=== PATIENT | male | born 1990 | race American Indian/Alaskan Native ===

== ENCOUNTER 2017-06-16 00:42 | Emergency (ER) | payer SELFPAY ==
--- NOTE | 2017-06-16 02:21 | XRay Report ---
FINAL REPORT EXAM: XR KNEE BILAT 1-2V HISTORY: fall thru stairs with pain COMPARISON: None available. FINDINGS: Two views of each knee obtained. Bony structures are intact. Joint spaces are preserved. No acute fracture dislocation. IMPRESSION: No acute bony abnormality.
[2017-06-16 04:17] VITALS: BP 138/89
[2017-06-16] MEDS ORDERED: NORCO 5/325 PO ONE (06:29)
[2017-06-16] MEDS ORDERED: MOTRIN PO ONE (06:29)
--- NOTE | 2017-06-16 06:29 | Emergency Department Report ---
ED Lower Extremity HPI - General Chief Complaint: Fall Stated Complaint: RT KNEE PAIN Time Seen by Provider: 06/16/17 06:20 Source: patient, EMS Mode of arrival: Ambulatory Limitations: No Limitations - History of Present Illness Initial Comments: 26-year-old male no significant past medical history presents with complaint of abrasions to both legs near knees and right knee pain status post mechanical fall. Patient states she was walking down stairs in his apartment building and as he placed a foot on a step stair gave way and both of his legs went through the step. Patient states the step may have been the lab dated. Both of his lower legs 1 through he was raised and skin superficially along both knees. Patient was able to immediately pull himself out of the damaged staircase that. Was witnessed by his girlfriend. Denies any loss of consciousness denies any other injuries patient is ambulatory but states that he is having pain near his right knee. Denies chest pain abdominal pain shortness of breath. Unaware of tetanus vaccine status. MD Complaint: knee injury (bilateral knee abrasions) -: Sudden, This evening Injury: Knee: Right, Left Type of Injury: other (fell through the lap and dated staircase) Place: home Severity: moderate Severity scale (0 -10): 6 Improves With: nothing Worsens With: nothing Other Symptoms: loss of consciousness Associated Symptoms: able to partially bear weight - Related Data Previous Rx's Medication Instructions Recorded Last Taken Type Naproxen [Naprosyn TAB] 500 mg PO BID PRN #25 tablet 06/16/17 Unknown Rx Neomycn/Baci Zn/Pmyx Bs/Pramox 1 applicatio TP BID #1 oint...g. 06/16/17 Unknown Rx [Triple Antibioti-Pain Rlf Oint] Allergies Allergy/AdvReac Type Severity Reaction Status Date / Time No Known Allergies Allergy Verified 06/16/17 00:53 ED Review of Systems ROS: Stated complaint: RT KNEE PAIN Other details as noted in HPI Constitutional: denies: chills, fever Eyes: denies: eye pain, eye discharge, vision change ENT: denies: ear pain, throat pain Respiratory: denies: cough, shortness of breath, wheezing Cardiovascular: denies: chest pain, palpitations Endocrine: no symptoms reported Gastrointestinal: denies: abdominal pain, nausea, diarrhea Genitourinary: denies: urgency, dysuria Musculoskeletal: denies: back pain, joint swelling, arthralgia Skin: denies: rash, lesions Neurological: denies: headache, weakness, paresthesias Psychiatric: denies: anxiety, depression Hematological/Lymphatic: denies: easy bleeding, easy bruising ED Past Medical Hx - Past Medical History Previous Medical History?: No - Surgical History Past Surgical History?: Yes Additional Surgical History: cyst removed from left wrist - Social History Smoking Status: Current Every Day Smoker Substance Use Type: None - Medications Home Medications: Home Medications Medication Instructions Recorded Confirmed Last Taken Type Naproxen [Naprosyn TAB] 500 mg PO BID PRN #25 tablet 06/16/17 Unknown Rx Neomycn/Baci Zn/Pmyx Bs/Pramox 1 applicatio TP BID #1 oint...g. 06/16/17 Unknown Rx [Triple Antibioti-Pain Rlf Oint] ED Physical Exam - General Limitations: No Limitations General appearance: alert, in no apparent distress - Head Head exam: Present: atraumatic, normocephalic - Eye Eye exam: Present: normal appearance, PERRL, EOMI - ENT ENT exam: Present: mucous membranes moist - Neck Neck exam: Present: normal inspection, full ROM - Respiratory Respiratory exam: Present: normal lung sounds bilaterally. Absent: respiratory distress - Cardiovascular Cardiovascular Exam: Present: regular rate, normal rhythm. Absent: systolic murmur, diastolic murmur, rubs, gallop - GI/Abdominal GI/Abdominal exam: Present: soft, normal bowel sounds - Rectal Rectal exam: Present: deferred - Extremities Exam Extremities exam: Present: normal inspection - Expanded Lower Extremity Exam Right Hip exam: Present: normal inspection, full ROM Upper Leg exam: Present: normal inspection, full ROM Knee exam: Present: full ROM (knee flexion and extension intact on exam), abrasion (area of abrasions to the right inner medial knee area), full knee extension (knee flexion and extension intact) Lower Leg exam: Present: full ROM Ankle exam: Present: normal inspection, full ROM Foot/Toe exam: Present: normal inspection, full ROM Neuro vascular tendon exam: Present: no vascular compromise (distal dorsalis pedis and posterior tibial pulses intact) Gait: Positive: antalgic (antalgic gait secondary to right knee pain) 1 - Abrasions here - Back Exam Back exam: Present: normal inspection - Neurological Exam Neurological exam: Present: alert, oriented X3, CN II-XII intact, abnormal gait (antalgic gait) - Psychiatric Psychiatric exam: Present: normal affect, normal mood - Skin Skin exam: Present: warm, dry, intact, normal color. Absent: rash ED Course Vital Signs 06/16/17 06/16/17 00:48 04:16 Temperature 98.5 F 97.8 F Pulse Rate 86 77 Respiratory 18 18 Rate Blood Pressure 146/73 138/89 O2 Sat by Pulse 98 98 Oximetry ED Lower Extremity MDM - Medical Decision Making A/P: Abrasions on skin, mechanical fall through staircase, right knee sprain 1-patient ambulatory no neurovascular deficits x-rays unremarkable of bilateral knees. noegative NEXUS and new [place] head CT criteria, pt fully ludic , cn 1- 12 intact, ambulatory 2-tetanus updated today 3-triple antibiotic ointment to superficial abrasions 4- patient provided with crutches to assist with ambulation, Andre wrap right knee , patient can begin to bear weight little by little over the next few days. RICE therapy Critical care attestation.: If time is entered above; I have spent that time in minutes in the direct care of this critically ill patient, excluding procedure time. ED Disposition Clinical Impression: Abrasion Knee sprain Qualifiers: Encounter type: initial encounter Involved ligament of knee: unspecified ligament Laterality: right Qualified Code(s): S83.91XA - Sprain of unspecified site of right knee, initial encounter Disposition: TO HOME OR SELFCARE Is pt being admited?: No Does the pt Need Aspirin: No Condition: Stable Instructions: Knee Sprain (ED), Abrasion (ED), RICE Therapy (ED) Prescriptions: Naproxen [Naprosyn TAB] 500 mg PO BID PRN #25 tablet PRN Reason: Pain Neomycn/Baci Zn/Pmyx Bs/Pramox [Triple Antibioti-Pain Rlf Oint] 1 applicatio TP BID #1 oint...g. Referrals: [facility] [Provider Group] - 3-5 Days Forms: Accompanied Note, Work/School Release Form(ED) Time of Disposition: 06:44
[2017-06-16] MEDS ORDERED: TRIPLE ANTIBIOTIC TP ONE (06:30)
[2017-06-16] MEDS ORDERED: BOOSTRIX IM ONE (06:30)
[2017-06-16] MEDS ORDERED: ZOFRAN ODT PO ONE (06:30)
== END 2017-06-16 06:55 | disposition home or self-care (01) ==
LOC: ED 00:42
DX: S83.91XA Sprain of unspecified site of right knee, initial encounter (principal); S80.812A Abrasion, left lower leg, initial encounter; S80.811A Abrasion, right lower leg, initial encounter; F17.200 Nicotine dependence, unspecified, uncomplicated; W18.30XA Fall on same level, unspecified, initial encounter; Y93.9 Activity, unspecified; Y92.9 Unspecified place or not applicable; Y99.9 Unspecified external cause status
CPT/HCPCS: 90471; 90715; A6250; Q0162

== ENCOUNTER 2018-07-25 08:20 | Emergency (ER) | payer SELFPAY ==
--- NOTE | 2018-07-25 09:01 | XRay Report ---
ROUTINE CHEST, TWO VIEWS: HISTORY: chest pain. The trachea, heart, mediastinal contour, lung miranda and bony thorax are unremarkable. IMPRESSION: Unremarkable chest x-ray.
[2018-07-25 09:28] LABS: Basophils # (Auto) 0.1 K/mm3 (0.0-0.1); Basophils % (Auto) 0.9 % (0.0-1.8); Eosinophils # (Auto) 0.2 K/mm3 (0.0-0.4); Eosinophils % (Auto) 2.7 % (0.0-4.3); Hematocrit 42.2 % (35.5-45.6); Lymphocytes # (Auto) 2.4 K/mm3 (1.2-5.4); Lymphocytes % (Auto) 31.7 % (13.4-35.0); Mean Corpuscular HGB Conc 33 % (32-34); Mean Corpuscular Hemoglobin 30 pg (28-32); Mean Corpuscular Volume 90 fl (84-94); Monocytes # (Auto) 0.5 K/mm3 (0.0-0.8); Monocytes % (Auto) 6.7 % (0.0-7.3); Platelet Count 209 K/mm3 (140-440); Red Cell Distribution Width 14.5 % (13.2-15.2)
[2018-07-25 09:49] LABS: BUN/Creatinine Ratio 15; Blood Urea Nitrogen 12 mg/dL (9-20); Calcium 9.2 mg/dL (8.4-10.2); Hemolysis Index 30
[2018-07-25] MEDS ORDERED: CATAPRES PO ONE (12:31)
--- NOTE | 2018-07-25 12:33 | Emergency Department Report ---
Blank Doc - Documentation Documentation: Patient is a 27-year-old -[place] male no no past medical history who is complaining of some chest discomfort. States is a pressure sensation in the middle of the chest but also hurts when he takes a deep breath he feels a sharp pain. Patient denies any leg swelling recent travel. Patient denies any cough cold congestion fevers chills nausea vomiting. Patient states this is been present since he woke up this morning about 7:30. A focused physical exam heart tones are within normal limits his lungs are clear to auscultation. There is no unilateral leg swelling. Patient has laboratory studies reviewed by me and show no acute abdomen now. Patient has a negative troponin. EKG shows a normal sinus rhythm with normal rate no axis deviation no ST segment elevation or depression. Because of the pleuritic component of the chest patient's pain and I will be ordered. Patient also has elevated blood pressure approximately 180 systolic and patient was given Catapres will be reassessed.
[2018-07-25 12:37] VITALS: BP 141/66
--- NOTE | 2018-07-25 12:47 | Emergency Department Report ---
ED Chest Pain HPI - General Chief Complaint: Chest Pain Stated Complaint: CHEST PAIN Time Seen by Provider: 07/25/18 12:19 Source: patient Mode of arrival: Ambulatory Limitations: No Limitations - History of Present Illness Initial Comments: Patient is a 27-year-old -[place] male no past medical history who is complaining of some chest discomfort. States is a pressure sensation in the middle of the chest but also hurts when he takes a deep breath he feels a sharp pain. Patient denies any leg swelling recent travel. Patient denies any cough cold congestion fevers chills nausea vomiting. Patient states this is been present since he woke up this morning about 7:30. Pain 6/10. Exacerbated by taking a deep breath and no alleviating factors. No medication taken prior to coming to the emergency room MD Complaint: chest pain -: This morning Onset: during rest Pain Location: substernal Pain Radiation: none Severity: severe Severity scale (0 -10): 6 Quality: sharp, pressure Consistency: constant Improves With: nothing Worsens With: inspiration Context: other (unknown) re: denies: nausea, vomting, diaphoresis, dyspnea, sense of impending doom Other Symptoms: denies: cough, fever, syncope, rash, acid taste in mouth, leg swelling, palpitations, burping Treatments Prior to Arrival: none Aspirin use within the Past 7 Days: (0) No - Related Data On Oral Contraceptives: No Previous Rx's Medication Instructions Recorded Last Taken Type Neomycn/Bacitrc/Polymyx/Pramox 1 applicatio TP BID #1 oint...g. 06/16/17 Unknown Rx [Triple Antibioti-Pain Rlf Oint] Famotidine [Pepcid] 20 mg PO BID 30 Days #30 tablet 07/25/18 Unknown Rx Naproxen [Naprosyn TAB] 500 mg PO BID PRN #14 tablet 07/25/18 Unknown Rx Allergies Allergy/AdvReac Type Severity Reaction Status Date / Time No Known Allergies Allergy Verified 06/16/17 00:53 Heart Score - HEART Score History: Slightly suspicious EKG: Normal Age: < 45 Risk factors: No known risk factors Troponin: < normal limit HEART Score: 0 ED Review of Systems ROS: Stated complaint: CHEST PAIN Other details as noted in HPI Constitutional: denies: chills, fever Eyes: denies: vision change ENT: denies: congestion Respiratory: denies: cough, shortness of breath, SOB with exertion, SOB at rest , wheezing Cardiovascular: chest pain. denies: palpitations, dyspnea on exertion, edema, syncope, paroxysmal nocturnal dyspnea Gastrointestinal: denies: abdominal pain, nausea, vomiting, diarrhea Musculoskeletal: denies: back pain, joint swelling, arthralgia Skin: denies: rash, lesions Neurological: denies: headache, weakness ED Past Medical Hx - Past Medical History Previous Medical History?: No Hx Seizures: No - Surgical History Past Surgical History?: Yes Additional Surgical History: cyst removed from left wrist - Family History Family history: hypertension - Social History Smoking Status: Current Every Day Smoker Substance Use Type: None - Medications Home Medications: Home Medications Medication Instructions Recorded Confirmed Last Taken Type Neomycn/Bacitrc/Polymyx/Pramox 1 applicatio TP BID #1 oint...g. 06/16/17 Unknown Rx [Triple Antibioti-Pain Rlf Oint] Famotidine [Pepcid] 20 mg PO BID 30 Days #30 tablet 07/25/18 Unknown Rx Naproxen [Naprosyn TAB] 500 mg PO BID PRN #14 tablet 07/25/18 Unknown Rx ED Physical Exam - General Limitations: No Limitations General appearance: alert, in no apparent distress - Head Head exam: Present: atraumatic, normocephalic, normal inspection - Eye Eye exam: Present: normal appearance, PERRL, EOMI Pupils: Present: normal accommodation - ENT ENT exam: Present: normal exam, normal orophraynx, mucous membranes moist - Neck Neck exam: Present: normal inspection, full ROM. Absent: tenderness, lymphadenopathy - Respiratory Respiratory exam: Present: normal lung sounds bilaterally. Absent: respiratory distress, chest wall tenderness - Cardiovascular Cardiovascular Exam: Present: regular rate, normal rhythm, normal heart sounds. Absent: systolic murmur, diastolic murmur - GI/Abdominal GI/Abdominal exam: Present: soft, normal bowel sounds. Absent: distended, tenderness, rigid, organomegaly, mass - Extremities Exam Extremities exam: Present: normal inspection, full ROM, normal capillary refill , other. Absent: tenderness, pedal edema, joint swelling, calf tenderness - Back Exam Back exam: Present: normal inspection, full ROM, other (Ambulates without difficulties). Absent: tenderness, CVA tenderness (R), CVA tenderness (L), muscle spasm, paraspinal tenderness, vertebral tenderness, rash noted - Neurological Exam Neurological exam: Present: alert, oriented X3, normal gait - Psychiatric Psychiatric exam: Present: normal affect, normal mood - Skin Skin exam: Present: warm, dry, intact, normal color. Absent: rash ED Course Vital Signs 07/25/18 07/25/18 07/25/18 08:43 12:37 12:48 Temperature 98.8 F Pulse Rate 82 70 70 Respiratory 18 18 Rate Blood Pressure 170/95 141/66 Blood Pressure 141/66 [Right] O2 Sat by Pulse 98 98 Oximetry - Reevaluation(s) Reevaluation #1: 07/25/18 14:55 Clonidine 0.2 mg by mouth given and blood pressure is not better. Patient denies any chest pain or shortness of breath at present. ALEX score - Alex Score Age > 65: (0) No Aspirin use within the Past 7 Days: (0) No 3 or more CAD Risk Factors: (0) No 2 or more Angina events in past 24 hrs: (0) No Known CAD with more than 50% Stenosis: (0) No Elevated Cardiac Markers: (0) No ST Deviation Greater than 0.5mm: (0) No ALEX Score: 0 ED Medical Decision Making - Lab Data Result diagrams: 07/25/18 09:16 07/25/18 09:16 Lab Results 07/25/18 07/25/18 07/25/18 Range/Units 09:16 09:16 12:56 WBC 7.4 (4.5-11.0) K/mm3 RBC 4.70 (3.65-5.03) M/mm3 Hgb 14.0 (11.8-15.2) gm/dl Hct 42.2 (35.5-45.6) % MCV 90 (84-94) fl MCH 30 (28-32) pg MCHC 33 (32-34) % RDW 14.5 (13.2-15.2) % Plt Count 209 (140-440) K/mm3 Lymph % (Auto) 31.7 (13.4-35.0) % [place] % (Auto) 6.7 (0.0-7.3) % Eos % (Auto) 2.7 (0.0-4.3) % Baso % (Auto) 0.9 (0.0-1.8) % Lymph # 2.4 (1.2-5.4) K/mm3 [place] # 0.5 (0.0-0.8) K/mm3 Eos # 0.2 (0.0-0.4) K/mm3 Baso # 0.1 (0.0-0.1) K/mm3 Seg Neutrophils % 58.0 (40.0-70.0) % Seg Neutrophils # 4.3 (1.8-7.7) K/mm3 D-Dimer 192.99 (0-234) ng/mlDDU Sodium 138 (137-145) mmol/L Potassium 4.4 (3.6-5.0) mmol/L Chloride 102.7 (98-107) mmol/L Carbon Dioxide 23 (22-30) mmol/L Anion Gap 17 mmol/L BUN 12 (9-20) mg/dL Creatinine 0.8 (0.8-1.5) mg/dL Estimated GFR > 60 ml/min BUN/Creatinine Ratio 15 % Glucose 102 H (75-100) mg/dL Calcium 9.2 (8.4-10.2) mg/dL Troponin T < 0.010 (0.00-0.029) ng/mL - EKG Data -: EKG Interpreted by Me (attending physician) EKG shows normal: sinus rhythm Rate: normal (74 bpm) - EKG Data Interpretation: no acute changes, normal EKG - Radiology Data Radiology results: report reviewed, image reviewed interpreted by me: Images reviewed and no acute cardiopulmonary processes. Still awaiting the final report from radiologist. Chest x-ray dictated by radiologist and report reviewed by myself. Please see details below - Medical Decision Making 27-year-old male who reports that he woke up this morning having mid chest pain. No history of heart disease but he has some hypertension. Chest x-ray-no acute cardiopulmonary findings. Please refer to report section for details Labs: CK, BMP stable. Troponin negative and d-dimer is within normal limits. SS/plan 1: Typical chest pain suspect pleurisy vs [id number] negative and patient is a low risk for PE based on PERC RULE. Cardiac heart score and ALEX is 0. Labs are stable please refer to left section for details. 2: Elevated blood pressure without any history of hypertension-blood pressure 170/95 and patient given Catapres 0.2 mg with stable blood pressure at present. Blood pressure still mildly elevated and I discussed with him that he needs to take his blood pressure and keep a log and take to her primary care visit with him for evaluation. I also referred him to cardiology. Patient stable he was updated on his labs and x-ray report. Computed patient diagnosis and treatment plan all medication discharged home in stable condition. He is no longer having chest pain. Vital signs stable. Afebrile. Discharge home with prescription for naproxen and Pepcid. Referral to cardiology and primary care in 2 days. - Differential Diagnosis ACS, PNA,PE, Pleurisy, Costrochdritis Critical care attestation.: If time is entered above; I have spent that time in minutes in the direct care of this critically ill patient, excluding procedure time. ED Disposition Clinical Impression: Pleurisy, Dyspepsia, Atypical chest pain, Elevated blood pressure reading without diagnosis of hypertension Disposition: DC-01 TO HOME OR SELFCARE Is pt being admited?: No Does the pt Need Aspirin: No Condition: Stable Instructions: Chest Pain (ED), Heart Healthy Diet (ED), Hypertension (ED), Famotidine (By mouth), Gastroesophageal Reflux Disease (ED) Additional Instructions: Please follow up with cardiology and primary care in 2 days and if he do not have a primary K he can follow-up at [facility] Keep a blood pressure and take to primary care physician for evaluation If chest pain returns, return to emergency room. Take medication as prescribed Prescriptions: Famotidine [Pepcid] 20 mg PO BID 30 Days #30 tablet Naproxen [Naprosyn TAB] 500 mg PO BID PRN #14 tablet PRN Reason: Pain Referrals: PRIMARY MD FRANK [Primary Care Provider] - 07/27/18 [facility] [Outside] - 07/27/18 TOMMY LOGAN MD [Staff Physician] - 07/27/18 Forms: Work/School Release Form(ED)
== END 2018-07-25 16:51 | disposition home or self-care (01) ==
LOC: ED 08:20
DX: R07.89 Other chest pain (principal); R10.13 Epigastric pain; R09.1 Pleurisy; R03.0 Elevated blood-pressure reading, without diagnosis of hypertension; F17.200 Nicotine dependence, unspecified, uncomplicated
CPT/HCPCS: 36415; 71046; 80048; 84484; 85025; 85379; 93005; 93010; 99283